=== PATIENT | female | born 1960 | race Asian ===

== ENCOUNTER 2017-05-10 10:10 | Emergency (ER) | payer OTHER, MEDICAID ==
[~2017-05-10] VITALS: Ht 152.4 cm; Wt 59.0 kg
[2017-05-10 11:01] VITALS: BP 151/83
== END 2017-05-10 15:48 | disposition home or self-care (01) ==
LOC: ER 10:10
DX: S01.01XA Laceration without foreign body of scalp, initial encounter (principal); S09.90XA Unspecified injury of head, initial encounter; W01.0XXA Fall on same level from slipping, tripping and stumbling without subsequent striking against object, initial encounter; Y93.89 Activity, other specified; Y99.8 Other external cause status; Y92.89 Other specified places as the place of occurrence of the external cause
CPT/HCPCS: 12002; 70450